=== PATIENT | female | born 1985 | race Caucasian/White ===

== ENCOUNTER 2020-11-29 10:29 | Emergency (ER) | payer OTHER, SELFPAY ==
--- NOTE | ~2020-11-29 | CT_ITS ---
EXAMINATION: CT abdomen pelvis w con EXAM DATE: 11/29/2020 12:02 INDICATION: Epigastric abdominal pain, blood in stool, nausea and vomiting. TECHNIQUE: Spiral CT of the abdomen and pelvis was performed following intravenous injection of 100 m L Omnipaque 350. Axial, coronal and sagittal images of the abdomen and pelvis were reviewed. The do se-length product (DLP) for this examination was 538.96 mGy-cm. The exposure was tailored according to patient size (auto mA exposure control), and iterative reconstruction (ASIR) was used as additiona l dose reduction technique. There is no prior study for comparison. FINDINGS: The liver, spleen, adrenal glands and pancreas are unremarkable. Gallbladder is unremarkab le. No biliary obstruction. Portal and splenic veins are patent. Kidneys enhance symmetrically. T here is no hydronephrosis. There is a 3 mm right inferior calyceal stone. The uterus is anteverted a nd morphologically normal. There are Essure tubal closure devices. The bladder is unremarkable. The re is no retroperitoneal or pelvic lymphadenopathy. The appendix is normal. The stomach and small bowel are unremarkable. There is expected amount of c olonic stool. No free intraperitoneal gas. The heart is normal in size. There are no pericardial or pleural effusions. The lung bases are unremarkable. There are no osteoblastic or osteolytic les ions identified. L5 limbus vertebral body. IMPRESSION: 1. No acute intra-abdominal findings. Reviewed, dictated and finalized at location B.
[2020-11-29 10:31] VITALS: BP 151/106; PULSE 91; RESP 18; TEMP 36.2; O2SAT 100
[2020-11-29 10:48] LABS: Basophils Absolute Auto 0.1 K/mm3 (0.0-0.1); Basophils Percent Auto 0.9 % (0.2-1.2); Eosinophils Absolute Auto 0.4 K/mm3 (0-0.3); Eosinophils Percent Auto 5.7 % (0-4.4); Hematocrit 45.7 % (37.0-47.0); Hemoglobin 15.1 g/dL (12.0-15.0); Immature Granulocyte Absolute 0.03 K/mm3 (0.00-0.031); Immature Granulocyte Percent A 0.4 % (0-0.5); Lymphocytes Absolute Auto 2.33 K/mm3 (0.9-3.2); Lymphocytes Percent Auto 31.6 % (18.3-44.2); Mean Corpuscular Hemoglobin 31.4 pg (26-34); Mean Platelet Volume 9.8 fl (7.4-10.4); Monocytes Absolute Auto 0.5 K/mm3 (0.1-0.6); Monocytes Percent Auto 6.5 % (2.6-8.5); Neutrophils Absolute Auto 4.1 K/mm3 (1.3-6.7); Neutrophils Percent Auto 54.9 % (45.5-73.1); Platelet Count Result 287 k/mm3 (150-375); Red Blood Count 4.81 M/mm3 (4.2-5.4); Red Cell Distribution Width 11.8 % (11.5-14.5); White Blood Count 7.4 K/mm3 (4.5-10.0)
[2020-11-29 10:54] VITALS: BP 143/94; PULSE 98; RESP 17; O2SAT 100
[2020-11-29 10:57] LABS: INR 0.9; Prothrombin Time 12.4 Seconds (11.1-14.7)
[2020-11-29 10:58] LABS: Partial Thromboplastin Time 24.7 SECONDS (22.3-36.8)
[2020-11-29 11:08] LABS: Alanine Aminotransferase 32 U/L (4-35); Albumin Level 4.8 g/dL (3.5-5.1); Alkaline Phosphatase 81 U/L (38-126); Anion Gap 10 mmol/L (8-16); Aspartate Amino Transferase 33 U/L (14-36); Bilirubin,Total 0.9 mg/dL (0.2-1.3); Blood Urea Nitrogen 13 mg/dL (7-17); Calcium 9.4 mg/dL (8.4-10.2); Carbon Dioxide 24 mmol/L (22-30); Chloride 108 mmol/L (98-107); Estimated CRCL calculation 123 ml/min; Estimated Glomerular Filt Rate > 60; Glucose 94 mg/dL (65-110); Sodium 142 mmol/L (137-145)
[2020-11-29 11:48] LABS: Lipase 47 U/L (23-300)
--- NOTE | 2020-11-29 11:52 | ED.GENADULT ---
HPI - General Adult General Chief complaint: GI Bleed Stated complaint: bloody stool Time Seen by Provider: 11/29/20 11:11 Source: patient History of Present Illness HPI narrative: Patient is a 35 y/o female complaining of abdominal pain, vomiting and bloody diarrhea starting today. She describes her pain as cramping and it's located in epigastric area. There is no pain radiation. She rates her pain as 7/10. She states that Pepto Bismol helps with her pain slightly. Related Data Home Medications Medication Instructions Recorded Confirmed No Home Medications 11/29/20 11/29/20 Allergies Allergy/AdvReac Type Severity Reaction Status Date / Time No Known Allergies Allergy Verified 11/29/20 10:54 Review of Systems Constitutional: Constitutional: Denies chills, Denies fever(s), Denies headache(s) and Denies weakness Eyes: Eyes: Denies blurry vision ENT: Denies headache(s) and Denies neck pain Cardiovascular: Cardiovascular: Denies chest pain and Denies dyspnea Respiratory: Respiratory: Denies cough and Denies dyspnea Gastrointestinal: Gastrointestinal: Reports abdominal pain, Reports hematochezia, Reports diarrhea, Reports nausea and Reports vomiting Genitourinary: Genitourinary: Denies hematuria and Denies dysuria Musculoskeletal: Musculoskeletal: Denies back pain and Denies neck pain Neurologic: Denies headache(s) and Denies weakness Exam Const: General: no acute distress and well developed Orientation/consciousness: oriented to person, oriented to place, oriented to time and patient oriented x3 HENMT: Head: normocephalic Ears: external ears normal General nose exam: Normal external nose present Eyes: General: appearance normal, both eyes and all related structures Conjunctivae: conjunctivae normal Neck: Neck: normal visual inspection and full ROM Chest: Chest palpation & inspection: normal inspection of the chest and no tenderness Resp: Effort & Inspection: normal respiratory effort Auscultation: clear to auscultation bilaterally Cardio: Rate: regular rate Rhythm: regular rhythm GI: GI Palp: No abdominal tenderness and Yes Soft to palpation Skin: General skin exam: normal color and turgor normal Neuro: General: oriented to person, oriented to place, oriented to time and patient oriented x3 Cognition (Neuro): normal cognition Extrem: General: normal to inspection, full ROM and no pedal edema Psych: Appearance: grossly normal Mental Status: mental status grossly normal Affect: normal affect Course Consultations Consultation #1: Discussed with Dr. Trinidad, who agrees with plan for discharge and follow up. Date: 11/29/20 Time: 14:18 Vital Signs Vital signs: Vital Signs Temperature 36.2 C L 11/29/20 10:31 Pulse Rate 91 11/29/20 10:31 Respiratory Rate 18 11/29/20 10:31 Blood Pressure 151/106 H 11/29/20 10:31 Pulse Oximetry 100 11/29/20 10:31 Temperature 36.2 C L 11/29/20 10:31 Pulse Rate 90 11/29/20 14:29 Respiratory Rate 15 11/29/20 14:29 Blood Pressure 146/78 H 11/29/20 14:29 Pulse Oximetry 100 11/29/20 14:29 Medical Decision Making Vital Signs Vital Signs: Vital Signs Temperature 36.2 C L 11/29/20 10:31 Pulse Rate 91 11/29/20 10:31 Respiratory Rate 18 11/29/20 10:31 Blood Pressure 151/106 H 11/29/20 10:31 Pulse Oximetry 100 11/29/20 10:31 Temperature 36.2 C L 11/29/20 10:31 Pulse Rate 90 11/29/20 14:29 Respiratory Rate 15 11/29/20 14:29 Blood Pressure 146/78 H 11/29/20 14:29 Pulse Oximetry 100 11/29/20 14:29 Lab Data Result diagrams: 11/29/20 13:54 11/29/20 10:39 Labs: Lab Results 11/29/20 11/29/20 11/29/20 Range/Units 10:39 10:39 10:39 WBC 7.4 (4.5-10.0) K/mm3 RBC 4.81 (4.2-5.4) M/mm3 Hgb 15.1 H (12.0-15.0) g/dL Hct 45.7 (37.0-47.0) % MCV 95.0 (80-100) fl MCH 31.4 (26-34) pg MCHC 33.0 (32-36) g/dl RDW 11.8 (11.5-14.5) % P
[2020-11-29 14:03] LABS: Hematocrit 43.8 % (37.0-47.0); Hemoglobin 14.3 g/dL (12.0-15.0)
[2020-11-29 14:29] VITALS: BP 146/78; PULSE 90; RESP 15; O2SAT 100
== END 2020-11-29 14:31 | disposition home or self-care (01) ==
PROVIDERS: Emergency Medicine; Emergency Provider Emergency Medicine
DX: R10.13 Epigastric pain (principal); K92.1 Melena
CPT/HCPCS: 36415; 74177; 80053; 81025; 83690; 85014; 85018; 85025; 85610; 85730; 86850; 86900; 86901; 99284; Q9967